=== PATIENT | male | born 1925 | race Caucasian/White ===

== ENCOUNTER 2016-07-19 00:15 | Inpatient (IN) ==
[2016-07-19] MEDS ORDERED: Ipratropium/Albuterol Neb 3 ML IH ONE (00:19)
[2016-07-19] MEDS ORDERED: methylPREDNISolone 125 MG/2 ML VIAL IVP ONE (00:19)
[2016-07-19 00:29] LABS: Basophils % 0.1 %; Eosinophils # 0.1 K/mcL (0.0-0.6); Eosinophils % 0.6 %; Hematocrit 43.9 % (37.5-50.1); Hemoglobin 13.8 g/dL (12.9-16.9); Immature Granulocytes % 0.2 % (0-4); Lymphocytes # 1.6 K/mcL (0.6-4.6); Lymphocytes % 19.3 %; Mean Corpuscular HGB Conc 31.4 g/dL (31.6-35.5); Mean Corpuscular Hemoglobin 29.2 pg (28.0-33.3); Mean Corpuscular Volume 92.8 fL (83.0-100.0); Mean Platelet Volume 10.4 fL (9.4-12.4); Monocytes # 0.6 K/mcL (0.0-1.3); Monocytes % 7.5 %; Neutrophils # 5.9 K/mcL (1.6-8.9); Platelet Count 108 K/mcL (140-400); Red Blood Count 4.73 M/mcL (4.19-5.50); Red Cell Distribution Width 14.6 % (11.5-14.5); Segmented Neutrophils % 72.3 %
--- NOTE | 2016-07-19 00:36 | Emergency Department Note ---
Disposition Clinical Impression: Hypoxia Respiratory failure Qualifiers: Chronicity: acute Respiratory failure complication: hypoxia Qualified Code(s): J96.01 - Acute respiratory failure with hypoxia Disposition: Admitted As Inpatient Condition: Good Referrals: NO,PCP [Non-Partnered Physician] - Forms: ED Satisfaction Letter SOB HPI - General Chief Complaint: ED Shortness of Breath/Dyspnea Stated Complaint: RUDDY Time Seen by Provider: 07/19/16 00:19 Source: patient, EMS Mode of arrival: EMS Limitations: no limitations Nursing Notes Reviewed: Yes Vital Signs Reviewed: Yes - History of Present Illness 89-year-old male history of asbestosis, hypertension who presents to the ER with a chief complaint of shortness of breath. Patient reports that around 10 PM this evening he started developing shortness of breath. Patient called EMS and the report is that he was 85% on room air upon arrival. He reports that he does not wear oxygen at home. He also endorses a cough during that time. Nonproductive. No history of cardiac disease, DVT or PE. No recent illnesses or sick contacts. No other complaints. Pt Subjective Complaint: shortness of breath Onset (ago): hour(s) Severity: moderate Consistency/Duration: constant Improves with: bronchodilators Worsens with: nothing Known history of: other (Asbestosis) Associated symptoms: Reports: cough. Denies: chest pain, fever, sputum production, orthopnea Treatment prior to arrival: oxygen, bronchodilator Cough present: Yes Cough Description: Involuntary Cough Frequency: Intermittent Sputum production: No Sputum Amount: None - Related Data Home oxygen amount: none Home Medications Medication Instructions Recorded Confirmed Atorvastatin [Lipitor] 40 mg PO HS 07/19/16 07/19/16 Levothyroxine [Synthroid] 125 mcg PO 0607/19/16 07/19/16 Lisinopril [Zestril] 20 mg PO DAILY 07/19/16 07/19/16 amLODIPine [Norvasc] 10 mg PO DAILY 07/19/16 07/19/16 rOPINIRole [Requip] 0.25 mg PO DAILY 07/19/16 07/19/16 Allergies Allergy/AdvReac Type Severity Reaction Status Date / Time No Known Allergies Allergy Verified 06/02/15 19:14 All systems ED: reviewed and negative except as stated. Constitutional: Denies: fever Cardiovascular: Denies: chest pain Respiratory: Reports: cough, dyspnea. Denies: wheezes Gastrointestinal: Denies: abdominal pain, nausea, vomiting Past Medical History - Past Medical History Attestation: Yes The following information was validated with the patient. Source: patient Medical history: Reports: hypertension, other Surgical history: Reports: non-contributory Psychiatric history: Reports: no psych history - Social History Smoking Status: Never smoker Smokeless Tobacco Status: Yes Alcohol use: Reports: none Drug use: Reports: none Physical Exam - General Limitations: no limitations General appearance: alert, in no apparent distress - Head Head exam: atraumatic, normocephalic, normal inspection - Eye Eye exam: Present: normal appearance, EOMI - ENT ENT exam: normal exam - Neck Neck exam: Present: normal inspection - Chest Chest inspection: Present: normal inspection, symmetric chest wall rise - Respiratory Respiratory exam: Present: other (Patient has diffuse rales). Absent: respiratory distress, accessory muscle use, prolonged expiratory phase - Cardiovascular Cardiovascular exam: Present: regular rate, normal rhythm, normal heart sounds - Abdominal Exam Abdominal exam: Present: soft, Non-Tender. Absent: tenderness - Extremities Exam Extremities exam: Present: normal inspection, full ROM - Expanded Upper Extremity Exam Shoulder exam: Present: normal inspection, full ROM Arm exam: Present: normal inspection, full ROM Elbow exam: Present: normal inspection, full ROM Forearm/Wrist exam: Present: normal inspection, full ROM Hand exam: Present: normal inspection, full ROM - Expanded Lower Extremity Exam Hip/Pelvis exam: Present: normal inspection, full ROM Upper leg exam: Present: normal inspection, full ROM Knee exam: Present: normal inspection, full ROM Lower leg exam: Present: normal inspection, full ROM Ankle exam: Present: normal inspection, full ROM Foot/toe exam: Present: normal inspection, full ROM - Neurological Exam Neurological exam: Present: alert - Psychiatric Psychiatric exam: Present: normal affect, normal mood - Skin Skin exam: Present: warm, dry, intact, normal color Course Course Narrative: Patient seen and examined. Vital signs reviewed. We will continue DuoNeb treatments as well as IV Solu-Medrol. We will also get an EKG, chest x-ray and labs including troponin. Disposition pending. - Reevaluation(s) Reevaluation #1: Discussed results of imaging and lab work with the patient. We will pursue a CTA of the chest to rule out pulmonary embolism. Reevaluation #2: Discussed results of CTA with the patient and family. Vital Signs Temperature 98.0 F 07/19/16 00:18 Pulse Rate 83 07/19/16 00:18 Respiratory Rate 18 07/19/16 00:18 Blood Pressure 159/78 07/19/16 00:18 O2 Sat by Pulse Oximetry 88 07/19/16 00:18 Temperature 98.0 F 07/19/16 00:18 Pulse Rate 81 07/19/16 02:49 Respiratory Rate 24 07/19/16 02:49 Blood Pressure 135/71 07/19/16 02:49 O2 Sat by Pulse Oximetry 96 07/19/16 02:49 Oxygen Delivery Oxygen Delivery Bipap Shortness of Breath/Dyspnea - MDM Narrative Medical decision making narrative: 89-year-old male presents to the ER due to shortness of breath that started prior to arrival. History of asbestosis. He was initially hypoxic at his home as well as here on nasal cannula. Patient was placed on BiPAP with improvement of his oxygenation. His chest x-ray is unchanged from his prior. We pursued a CT of the chest which shows no evidence of PE. He continues to have an oxygen requirement and will be admitted for hypoxia to the hospitalist service. - Lab Data Lab results reviewed: Yes I reviewed the patient's lab results. Result diagrams: 07/19/16 00:21 07/19/16 00:21 Lab Results 07/19/16 07/19/16 07/19/16 Range/Units 00:21 00:21 00:21 WBC 8.2 (4.3-11.1) K/mcL RBC 4.73 (4.19-5.50) M/mcL Hgb 13.8 (12.9-16.9) g/dL Hct 43.9 (37.5-50.1) % MCV 92.8 (83.0-100.0) fL MCH 29.2 (28.0-33.3) pg MCHC 31.4 L (31.6-35.5) g/dL RDW 14.6 H (11.5-14.5) % Plt Count 108 L (140-400) K/mcL MPV 10.4 (9.4-12.4) fL Immature Gran % 0.2 (0-4) % Seg Neutrophils % 72.3 % Lymphocytes % 19.3 % Monocytes % 7.5 % Eosinophils % 0.6 % Basophils % 0.1 % Neutrophils # 5.9 (1.6-8.9) K/mcL Lymphocytes # 1.6 (0.6-4.6) K/mcL Monocytes # 0.6 (0.0-1.3) K/mcL Eosinophils # 0.1 (0.0-0.6) K/mcL Basophils # 0.0 (0.0-0.2) K/mcL Immature Plt Fraction 4.0 (1.1-6.1) % Sodium 141 (136-145) mEq/L Potassium 3.7 (3.5-4.5) mEq/L Chloride 106 (98-109) mEq/L Carbon Dioxide 28 (19-29) mEq/L BUN 23 (8-26) mg/dL Creatinine 1.35 H (0.72-1.25) mg/dL Est GFR ( Amer) > 60 (> 60) Est GFR (Non-Af Amer) 50 L (> 60) BUN/Creatinine Ratio 17 (6-26) Glucose 128 H (70-99) mg/dL Calculated Osmolality 297 (280-300) Calcium 9.3 (8.6-10.8) mg/dL Troponin I 0.01 (0-0.03) ng/mL B-Natriuretic Peptide (0-100) pg/mL 07/19/16 Range/Units 00:21 WBC (4.3-11.1) K/mcL RBC (4.19-5.50) M/mcL Hgb (12.9-16.9) g/dL Hct (37.5-50.1) % MCV (83.0-100.0) fL MCH (28.0-33.3) pg MCHC (31.6-35.5) g/dL RDW (11.5-14.5) % Plt Count (140-400) K/mcL MPV (9.4-12.4) fL Immature Gran % (0-4) % Seg Neutrophils % % Lymphocytes % % Monocytes % % Eosinophils % % Basophils % % Neutrophils # (1.6-8.9) K/mcL Lymphocytes # (0.6-4.6) K/mcL Monocytes # (0.0-1.3) K/mcL Eosinophils # (0.0-0.6) K/mcL Basophils # (0.0-0.2) K/mcL Immature Plt Fraction (1.1-6.1) % Sodium (136-145) mEq/L Potassium (3.5-4.5) mEq/L Chloride (98-109) mEq/L Carbon Dioxide (19-29) mEq/L BUN (8-26) mg/dL Creatinine (0.72-1.25) mg/dL Est GFR ( Amer) (> 60) Est GFR (Non-Af Amer) (> 60) BUN/Creatinine Ratio (6-26) Glucose (70-99) mg/dL Calculated Osmolality (280-300) Calcium (8.6-10.8) mg/dL Troponin I (0-0.03) ng/mL B-Natriuretic Peptide 32 (0-100) pg/mL - Radiology Data Radiology results reviewed: Yes I reviewed the patient's radiology results. Chest X-Ray 07/19/16 00:20 IMPRESSION: Stable portable study. D/ / Sarah Mullins Cha, MD / Sarah Mullins Cha, MD Interpreting Provider: Sarah Mullins Cha, MD Chest CTA 07/19/16 01:34 IMPRESSION: 1. No definite scan evidence for pulmonary embolus. 2. Bilateral lower lobe atelectasis versus pneumonia. 3. Coronary artery disease. 4. 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 D/ / Brendan Crabtree MD / Brendan Crabtree MD Interpreting Provider: Brendan Crabtree MD - EKG Data EKG attestation: Yes I reviewed and interpreted this EKG. EKG results narrative: EKG demonstrates normal sinus rhythm with a rate of 77 bpm. Normal axis. AK interval 204 QRS duration 99 QTC 402 T-wave flattening in lead 3. Unchanged from previous EKG. No ST elevations or depressions. No acute ischemic findings. No significant changes from previous EKG dated 06/02/15. S.B.A.R. - S.B.A.R. Situation: Demographics, MOA Background: Presenting Complaint, Relevant PMH, Meds, & Allergies Assessment: Course and respsone to treatment, Exam Concerns, Patient/Family Expectation, Pertinant Lab Results, Outstanding Labs Recommendation: Barrier(s) to disposition, Recommendation based on pending studies, treatments, or consults Librado Report Given to: Dr. Jean Claude Pavon Repor Time: 03:11 Attestation Statement - Attestation Attestation: I, Chicho Veronica MD, personally evaluated this patient and discussed their management with the resident physician. I reviewed the resident's note and agree with the documented findings, medical decision making, and plan of care. 89-year-old male presents to the emergency department with a complaint of acute onset of shortness of breath about 10 PM tonight. He does admit to some increased cough for the past few days with yellow sputum production. No fever. No chest pain. He has a history of asbestosis but is not on any home oxygen. On examination patient is a well-developed well-nourished elderly male in no acute distress. He does appear mildly short of breath. There is no cyanosis or diaphoresis. He is alert and oriented 3. Chest is nontender to palpation. Breath sounds are decreased bilaterally with a few dry crackles bilaterally. Heart regular rate and rhythm. Abdomen soft and nontender with normal bowel sounds. 1+ pedal edema. Labs reviewed. Chest x-ray unchanged. No acute changes on EKG. CTA of the chest showed no evidence of pulmonary embolism. The hospitalist, Dr. Silverio, was consulted and accepted admission of the patient.
[2016-07-19 00:41] LABS: BUN/Creatinine Ratio 17 (6-26); Blood Urea Nitrogen 23 mg/dL (8-26); Calcium 9.3 mg/dL (8.6-10.8); Carbon Dioxide 28 mEq/L (19-29); Chloride 106 mEq/L (98-109); Glucose 128 mg/dL (70-99); Osmolality,Calculated 297 (280-300); Potassium 3.7 mEq/L (3.5-4.5); Sodium 141 mEq/L (136-145); eGFR For African Americans > 60 (> 60); eGFR For Non-African Americans 50 (> 60)
[2016-07-19] MEDS ORDERED: Ondansetron 4 MG/2 ML VIAL IVP ONE (01:20)
[2016-07-19] MEDS ORDERED: 0.9 % Sodium Chloride 500 ML IVC ONE (01:34)
[2016-07-19] MEDS ORDERED: Acetaminophen 325 MG TABLET PO PRN (03:14)
[2016-07-19] MEDS ORDERED: Naloxone 0.4 MG/ML INJ IVP PRN (03:14)
[2016-07-19] MEDS ORDERED: Ondansetron 4 MG/2 ML VIAL IVP PRN (03:14)
--- NOTE | 2016-07-19 03:56 | Internal Med History&Physical ---
Date of Encounter: 07/19/16 Time of Encounter: 04:00 Assessment and Plan (1) Respiratory failure Current visit: Yes Status: Acute Patient has a history of cold over the past 2-3 days with dry cough. His cough eventually became productive with yellowish sputum and sudden onset shortness of breath last night at 10 PM. On exam, patient is stating using accessory muscles of respiration but has clear breath sounds currently. However, the cord into the squad notes, he had bilateral basal crepitations. Chest x-ray does not reveal any acute abdomen. CT scan of the chest personally reviewed-reveals pleural plaques consistent with prior asbestos exposure. Bilateral lower lobe atelectasis versus pneumonia present. EKG does not reveal any changes suggestive of ischemia. Troponins are negative. He states that his last stress test was about one and half years ago which was normal. Labs do not reveal any leukocytosis. Patient will be admitted to inpatient status. Expected to be in the hospital for at least 2 minutes. Expected discharge disposition is to home. High risk due to risk of worsening respiratory failure which may require intubation and mechanical ventilation. Patient will be given intravenous steroids. We will obtain an echocardiogram to evaluate for systolic and diastolic dysfunction. Patient will be given a single dose of 40 mg intravenous Lasix and his response assessed. Hold off on antibiotics as the patient likely has a viral infection that is causing his reactive airway disease. Qualifiers: Chronicity: acute Respiratory failure complication: hypoxia Qualified Code(s): J96.01 - Acute respiratory failure with hypoxia (2) CHF (congestive heart failure) Current visit: Yes Status: Suspected Suspected diastolic CHF. Patient had an echo 1 year ago which revealed a preserved ejection fraction and mild left ventricular concentric hypertrophy. Patient will be given a single dose of intravenous Lasix 40 mg and his response will be assessed. Qualifiers: Congestive heart failure type: diastolic Congestive heart failure chronicity: acute Qualified Code(s): I50.31 - Acute diastolic (congestive) heart failure (3) Hypothyroidism Current visit: Yes Status: Acute Patient is currently on Synthroid. Continue Synthroid. Check TSH. Qualifiers: Hypothyroidism type: acquired Qualified Code(s): E03.9 - Hypothyroidism, unspecified (4) HTN (hypertension) Current visit: Yes Status: Chronic Controlled blood pressure. Continue home medications. Hold lisinopril for now. Qualifiers: Hypertension type: essential hypertension Qualified Code(s): I10 - Essential (primary) hypertension (5) Renal failure, chronic Current visit: Yes Status: Chronic Patient's renal function is at baseline. Likely related to hypertensive nephropathy. Qualifiers: Chronic kidney disease stage: stage 3 (moderate) Qualified Code(s): N18.3 - Chronic kidney disease, stage 3 (moderate) Internal Medicine - H&P: HPI Chief complaint: Shortness of breath Admitted From: Emergency Dept Plans for Post Hospital Care: Home History of present illness: Mr. Collier is a 89 year old male with a past medical history of asbestos exposure , hypothyroidism and hypertension who presented to the emergency department due to shortness of breath. Patient states that he has had a cold with nasal condition and runny nose and mild sore throat over the past 2-3 days. He states that he has had a dry cough with the cold. However, yesterday night at 10 PM, he started experiencing sudden worsening of shortness of breath with short of breath at rest associated with cough with yellow colored sputum production. Hence, he medically called the squad. On the arrival by the squad , he was found to have a saturation of 85% on room air. The patient does not use oxygen at home. He was found to have bilateral basal crepitations on exam by the squad. He was given a breathing treatment and his saturations improved to 92% on room air. As the patient was still struggling to breathe, he was transported to the emergency department. Patient denies having any fever or chills. He reports some wheezing. He reports chest tightness but denies any chest pain. He denies having any palpitations, lightheadedness, headache. He does report swelling of his legs over the past 2-3 days. He denies any weight changes. He denies any changes in his appetite. He denies any urinary symptoms, nausea, vomiting, diarrhea, constipation or abdominal pain. He denies any rash or bruising. He denies any weakness in his arms or legs. He denies using any inhalers at home. Past Med Surg Social Fam HX - Past Medical History Attestation: Yes The following information was validated with the patient. Source: patient Medical history: hypertension, thyroid disease, other Psychiatric history: no psych history - Past Surgical History Surgical History: orthopedic, other (right shoulder surgery) - Social History Smoking Status: Never smoker Smokeless Tobacco Status: Yes Alcohol use: none Drug use: none Occupational status: retired Current living situation: Home - Independent Activity Level: Independent ambulation, Very active Recent Out of Country Travel Within the Last 8 Weeks: No Exposure or Possible Exposure to Illness During Travel: No - Family History Sister Family Member Ethnicity: Non- Living Status: Hx Family Cancer: Yes Internal Medicine - H&P: Meds Atorvastatin [Lipitor] 40 mg PO HS 07/19/16 [History] Levothyroxine [Synthroid] 125 mcg PO 0630 07/19/16 [History] Lisinopril [Zestril] 20 mg PO DAILY 07/19/16 [History] amLODIPine [Norvasc] 10 mg PO DAILY 07/19/16 [History] rOPINIRole [Requip] 0.25 mg PO DAILY 07/19/16 [History] Allergies No Known Allergies Allergy (Verified 06/02/15 19:14) All Systems PM: A 10-system review of systems was performed and is negative for pertinent findings except as documented above in the HPI. Review of systems: 10 systems reviewed and negative except as mentioned in the HPI - Constitutional Vitals: Temp Pulse Resp BP Pulse Ox 98.0 F 81 16 159/76 96 07/19/16 00:18 07/19/16 02:49 07/19/16 03:43 07/19/16 03:43 07/19/16 02:49 Exam: Gen.: Lying in bed. [id number] distress. Eyes: Pupils equal, round and reactive to light. Extraocular muscles intact. ENT: Moist mucous membranes. No oropharyngeal erythema or discharge. Chest: Clear to auscultation bilaterally. No adventitious sounds present. Using accessory muscles of respiration sparingly. CVS: First and second heart sounds present. No murmurs, rubs or gallops. Tachycardia present. Bilateral lower extremity 2+ pitting pedal edema present. Abdomen: Soft, nontender, nondistended. Bowel sounds present. No hepatosplenomegaly. Skin: No decubitus ulcers appreciated. 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 Psychiatric: Alert, awake and oriented to time, place and person. Lymphatic system: No lymphadenopathy appreciated Internal Med - H&P Results - Labs CBC & Chem 7: 07/19/16 00:21 07/19/16 00:21 - EKG Data -: EKG Interpreted by Myself EKG shows normal: sinus rhythm, ST-T waves (Non specific changes) Rate: normal - Diagnostic Studies Chest x-ray Status: image reviewed by me (No acute abnormality or infiltrate detected.)
[2016-07-19] MEDS ORDERED: Furosemide 40 MG/4 ML VIAL IVP ONE (04:20)
[2016-07-19] MEDS ORDERED: Ipratropium/Albuterol Neb 3 ML IH PRN (04:20)
[2016-07-19 04:47] LABS: Alanine Aminotransferase 24 Units/L (0-55); Albumin 3.5 g/dL (3.5-5.0); Albumin/Globulin Ratio 1.1 (1.1-2.2); Alkaline Phosphatase 120 Units/L (38-126); Aspartate Amino Transferase 28 Units/L (5-34); BUN/Creatinine Ratio 17 (6-26); Bilirubin,Total 1.5 mg/dL (0.2-1.2); Blood Urea Nitrogen 20 mg/dL (8-26); Carbon Dioxide 27 mEq/L (19-29); Chloride 107 mEq/L (98-109); Globulin 3.3 g/dL (2.4-3.5); Glucose 157 mg/dL (70-99); Osmolality,Calculated 300 (280-300); Potassium 3.7 mEq/L (3.5-4.5); Sodium 142 mEq/L (136-145); Total Protein 6.8 g/dL (6.0-8.3); eGFR For African Americans > 60 (> 60); eGFR For Non-African Americans 56 (> 60)
[2016-07-19] MEDS: MethylPREDNISolone 40 MG/ML VIAL IVP SCH ×2 (05:24→18:01)
[2016-07-19 05:42] LABS: Thyroid Stimulating Hormone 2.879 mcIU/mL (0.350-4.840)
[2016-07-19] MEDS: amLODIPine 5 MG TABLET PO SCH (07:44)
[2016-07-19] MEDS: rOPINIRole 0.25 MG TABLET PO SCH (07:44)
--- NOTE | 2016-07-19 08:05 | Palliative - Consult Note ---
Date of Encounter: 07/19/16 Time of Encounter: 07:05 - Assessment and Plan (1) Chest pain Current Visit: No Status: Acute Assessment and plan: Was associated with shortness of breath last night this has resolved, at this time. Plan for workup as per the hospitalist team. Qualifiers: Chest pain type: unspecified Qualified Code(s): R07.9 - Chest pain, unspecified (2) Goals of care, counseling/discussion Current Visit: Yes Status: Acute Assessment and plan: Discussed with patient CODE STATUS patient wishes to be a full code. He understands his decision and I believe that it is well considered. Also care patient wishes to return home. Patient has not had a great deal of difficulty with breathing in the past. Echo done a little over a year ago showed a well-preserved contraction fraction and perhaps mild diastolic dysfunction. He did be further delineated, however agent is absolutely not hospice eligible at this time. He is also not interested in it. The patient has not selected his medical power of state's attorney or done advanced directives and I have put in a consult to social work for this. As palliative was only consult regarding power of state's attorney, and advanced directives addressed these as well as CODE STATUS we will therefore sign off. Please feel free to reconsult if we can help in any way. (3) Dyspnea Current Visit: No Status: Acute Assessment and plan: Much improved per patient this morning, plan per hospitalist team Qualifiers: Dyspnea type: unspecified Qualified Code(s): R06.00 - Dyspnea, unspecified (4) Respiratory failure Current Visit: Yes Status: Acute Assessment and plan: Much improved per patient this morning, plan per hospitalist team Qualifiers: Chronicity: acute Respiratory failure complication: hypoxia Qualified Code(s): J96.01 - Acute respiratory failure with hypoxia (5) CHF (congestive heart failure) Current Visit: Yes Status: Suspected Assessment and plan: Preserved ejection fraction in all of last year with mild diastolic dysfunction. It does appear that the patient had some further worsening of this. Patient is responding well to treatment plan per hospitalist team Qualifiers: Congestive heart failure type: diastolic Congestive heart failure chronicity: acute Qualified Code(s): I50.31 - Acute diastolic (congestive) heart failure Palliative-CN HPI - Data of Consult Patient: new to practice Requesting Physician: Hailee Edwards MD Primary Care Provider: Jose Stover MD - Consult Narrative Palliative Care/Comfort Measures: Palliative care History of present illness: Mr. Collier is a 89 year old male A past history of asbestos exposure hypothyroidism and hypertension she has had a cold with nasal congestion for the last 2-3 days prior to admission right cough although it started coming up with a little bit of yellow sputum and then last night became very bad in terms of his breathing. He called the squad and was found to have an 85% saturation on room air. He does not use oxygen at home. Getting a breathing treatment in route and his saturations improved to 92 %. Stated he did have some chest tightness but denied any other kinds of discomfort he rated the chest tightness at no more than a 3 or 4/10 thing made it better or worse. He denied having any palpitations lightheadedness or headache has had some swelling of his legs over the last 2-3 days. Any significant weight change no changes in his appetite is any urinary symptoms nausea vomiting diarrhea or constipation has no abdominal pain he has no discomfort anywhere except for the mild chest discomfort he had yesterday. Denies any rashes or bruising. He does not use any inhalers at home. Has had a mild headache associated with this fever or chills and at times he has felt a little bit achy all over but it just been very mild maybe 2-3 at the most over 10. Of care was consulted regarding the fact the patient has no advanced directives no medical power of state's attorney. Consulted to get this process rolling. CC: Hailee Edwards MD Shortness of breath Past Med Surg Social Fam HX - Past Medical History Medical history: hypertension, thyroid disease, other Psychiatric history: no psych history - Past Surgical History Surgical History: orthopedic, other (right shoulder surgery) - Social History Smoking Status: Never smoker Smokeless Tobacco Status: Yes Alcohol use: none Drug use: none - Family History Sister Family Member Ethnicity: Non- Living Status: Hx Family Cancer: Yes Medications and Allergies Atorvastatin [Lipitor] 40 mg PO HS 07/19/16 [History] Levothyroxine [Synthroid] 125 mcg PO 0630 07/19/16 [History] Lisinopril [Zestril] 20 mg PO DAILY 07/19/16 [History] amLODIPine [Norvasc] 10 mg PO DAILY 07/19/16 [History] rOPINIRole [Requip] 0.25 mg PO DAILY 07/19/16 [History] Allergies No Known Allergies Allergy (Verified 06/02/15 19:14) All systems: reviewed and no additional remarkable complaints except as stated Palliative Care-Exam - Constitutional Vitals: Temp Pulse Resp BP Pulse Ox 97.4 F L 92 17 135/55 93 07/19/16 07:23 07/19/16 07:23 07/19/16 07:23 07/19/16 07:23 07/19/16 07:49 General appearance: Present: no acute distress - Head Head Exam: Present: atraumatic, normal inspection - Eye Eye exam: Present: EOMI, PERRL - ENT ENT exam: Present: mucous membranes moist - Neck Neck exam: Present: normal inspection - Respiratory Respiratory exam: Present: decreased breath sounds (Slightly) - Cardiovascular Cardiovascular exam: Present: RRR - GI/Abdominal Exam GI/Abdominal exam: Present: normal bowel sounds, soft. Absent: tenderness - Extremities Exam Extremities exam: Present: pedal edema. Absent: normal inspection, tenderness - Neurological Exam Neurological exam: Present: alert, oriented X3 - Psychiatric Psychiatric exam: Present: normal affect, normal mood. Absent: agitated, anxious - Skin Skin exam: Present: dry, warm Internal Medicine - CN: Reslt - Labs CBC & Chem 7: 07/19/16 00:21 07/19/16 04:17 Labs: BMP 07/19/16 04:17 Sodium 142 Potassium 3.7 Chloride 107 Carbon Dioxide 27 BUN 20 Creatinine 1.21 Glucose 157 H Calcium 9.0 Cardiac Enzymes 07/19/16 Range/Units 04:17 Troponin I 0.01 (0-0.03) ng/mL Liver Function 07/19/16 Range/Units 04:17 Total Bilirubin 1.5 H (0.2-1.2) mg/dL AST 28 (5-34) Units/L ALT 24 (0-55) Units/L Alkaline Phosphatase 120 (38-126) Units/L Albumin 3.5 (3.5-5.0) g/dL Consult Discharge Plan - Plan Referrals: Jose Stover MD [Primary Care Provider] - Palliative Quality Palliative Quality: Screen for Code Status: Yes, Screen for Goals of Care: Yes, Screen for Pain: Yes, If Pain Regimen Started, Initiate Bowel Regimen: Yes, Screen for Nausea/Vomitting: Yes Code Status: 07/19/16 04:20 Resuscitation Status: Active [RES] Routine Comment: Resuscitation Status: Full Code
--- NOTE | 2016-07-19 13:45 | Event Note ---
Date of Encounter: 07/19/16 Time of Encounter: 11:15 Patient is feeling better currently. Shortness of breath is improving. Still requiring O2 supplementation via nasal cannula. Will continue current management. Awaiting 2-D echocardiogram results.
[2016-07-20] MEDS: MethylPREDNISolone 40 MG/ML VIAL IVP SCH (05:31)
[2016-07-20] MEDS ORDERED: *HR* Heparin 5,000 UNIT/ML VIAL SQ SCH (06:00)
[2016-07-20] MEDS: rOPINIRole 0.25 MG TABLET PO SCH (07:44)
[2016-07-20] MEDS: amLODIPine 5 MG TABLET PO SCH (07:44)
--- NOTE | 2016-07-20 09:19 | Discharge Summary ---
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 (3) CHF (congestive heart failure) Priority: Secondary Status: Chronic Qualifiers: Congestive heart failure type: diastolic Congestive heart failure chronicity: chronic Qualified Code(s): I50.32 - Chronic diastolic (congestive ) heart failure (4) HTN (hypertension) Priority: Secondary Status: Chronic Qualifiers: Hypertension type: essential hypertension Qualified Code(s): I10 - Essential (primary) hypertension (5) Hypothyroidism Priority: Secondary Status: Acute Qualifiers: Hypothyroidism type: acquired Qualified Code(s): E03.9 - Hypothyroidism, unspecified (6) Pulmonary hypertension Priority: Secondary Status: Chronic - Discharge Medications Prescriptions: Albuterol Sulfate [Albuterol Inhaler] 2 puff IH Q4HR PRN #1 inhaler PRN Reason: Shortness Of Breath/Wheezing Azithromycin [Azithromycin 6-Tab Pack] 250 mg PO PER PKG DI #6 tab predniSONE [PredniSONE] 10 mg PO DAILY 8 Days Home Medications: Atorvastatin [Lipitor] 40 mg PO HS 07/19/16 [History] Hydrocortisone Rectal CRM [Proctosol-Hc] 1 appl RC AD PRN 07/19/16 [History] Levothyroxine [Synthroid] 125 mcg PO DAILY 07/19/16 [History] Lisinopril [Zestril] 20 mg PO DAILY 07/19/16 [History] amLODIPine [Norvasc] 10 mg PO DAILY 07/19/16 [History] rOPINIRole [Requip] 0.25 mg PO DAILY 07/19/16 [History] Albuterol Sulfate [Albuterol Inhaler] 2 puff IH Q4HR PRN #1 inhaler 07/20/16 [Rx ] Azithromycin [Azithromycin 6-Tab Pack] 250 mg PO PER PKG DI #6 tab 07/20/16 [Rx] predniSONE [PredniSONE] 10 mg PO DAILY 8 Days 07/20/16 [Rx] Allergies/Adverse Reactions: Allergies No Known Allergies Allergy (Verified 06/02/15 19:14) Procedures/tests Complete & Pending: Procedures Performed prior 72 hours Category Date Time Status EV echocardiogram Routine Y 07/19/16 04:20 Completed Date of admission: 07/19/16 04:02 Primary care physician: Jose Stover MD Consults: 07/19/16 04:20 Consult to Palliative Care [CONS] Routine Comment: Consulting Provider: Palliative Care Cristal Reason for Consult: Health care proxy Call Completed: No Discharging clinician: Hailee Edwards Anticipated date of discharge: 07/20/16 - Patient Status Disposition: Home, Self-Care Condition: Good Functional capacity at discharge: independent ambulation Overall status at discharge: patient is progressing back to baseline - Discharge Instructions Follow Up With: Jose Stover MD [Primary Care Provider] - (web request..07/19/16) - Diet and Activity Activity: wear oxygen at all times Diet: advance to your usual diet, low fat, low cholesterol, low salt diet Hospital course: Mr. Collier is a 89 year old male patient with a history of hypertension, hypothyroidism, prior asbestos exposure who presented to the ER with complaints of nasal congestion, sore throat and shortness of breath for the prior 2-3 days. He was admitted here with acute respiratory failure probably related to bronchitis and pulmonary asbestosis. He was treated with bronchodilators, O2 supplementation. CT angiogram of his chest did not show any pulmonary embolism. 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 He also had some bilateral basilar atelectasis. He received IV steroids also. He has had significant improvement since then and is feeling much better now. He was evaluated for home oxygen and he did qualify for home oxygen as his oxygen levels dropped to 84% on room air with minimal ambulation. This is likely due to his pulmonary asbestosis and resultant restrictive lung disease. I will arrange for him to follow up with pulmonology as outpatient. He will also be prescribed a short course of antibiotics for bronchitis and albuterol inhaler for symptomatic treatment. There was also concern for heart failure on initial presentation. However patient's BNP was negative and a 2-D echocardiogram showed mild diastolic dysfunction with a normal left ventricle systolic function and ejection fraction of 70-75%. He did have moderate pulmonary hypertension. - Time Spent with Patient Total time spent providing and/or coordinating discharge services: Greater than 30 minutes (35 min) - Constitutional Vitals: Temp Pulse Resp BP Pulse Ox 98.8 F 86 18 138/61 90 07/20/16 07:50 07/20/16 07:50 07/20/16 07:50 07/20/16 07:50 07/20/16 08:58 General appearance: Present: cooperative, mild distress, A&O X 3, answers questions appropriately - Respiratory Respiratory exam: Present: decreased breath sounds (At both bases). Absent: accessory muscle use, rales, rhonchi, wheezes Additional comments: Basal crepitations - Cardiovascular Cardiovascular exam: Present: RRR, +S1, +S2. Absent: diastolic murmur, gallop, rubs, systolic murmur - Extremities Exam Extremities exam: Present: warm, radial pulses palpable and symetrical. Absent : calf tenderness, cyanotic, pedal edema - Attending Attestation This document has been at least partially created by [employer] recognition technology by Dr. Edwards. Errors in grammar, wording or other phrases may exist. If errors are found after the documentation is signed, they will be addressed individually in the addendum section of this document when appropriate.
[2016-07-20 12:27] VITALS: BP 146/66
--- NOTE | 2016-07-21 08:10 | Electrocardiograph Report ---
[place] [id number] Test Date: 2016-07-19 Pat Name: Myles Collier Department: 104 Room: [facility] Gender: M Chaplain Resident: EKP : [id number] Requested By: Santos Cason Order Number: [id number] Reading MD: Conrado Gray MD Measurements Intervals [place] Rate: 77 P: 39 ND: 204 QRS: -23 QRSD: 99 T: 36 QT: 371 QTc: 402 Interpretive Statements SINUS RHYTHM Poor R wave progression Electronically Signed On 07-21-2016 8:09:03 EDT by Conrado Gray MD
== END 2016-07-20 13:02 | disposition home or self-care (01) | DRG 189 ==
LOC: EMEROO 00:15 → 2ANU 00:15
PROVIDERS: ADMIT Internal Medicine Sleep Medicine; ATTEND Internal Medicine